=== PATIENT | male | born 1970 | race Caucasian/White ===

== ENCOUNTER 2018-03-01 09:40 | Emergency (ER) | payer SELFPAY ==
[2018-03-01] MEDS ORDERED: Ondansetron 4 MG/2 ML SDV IVPUSH ONE (09:50)
[2018-03-01] MEDS ORDERED: Sodium Chloride 0.9% 10 ML Syringe FLUSH PRN (09:50)
[2018-03-01] MEDS ORDERED: HYDROmorphone 0.5 MG/0.5 ML SYRINGE IVPUSH ONE (09:51)
[2018-03-01] MEDS ORDERED: Ketorolac 30 MG/ML SDV IVPUSH ONE (09:51)
--- NOTE | 2018-03-01 09:58 | EDM.PDOC ---
ED HPI GENERAL MEDICAL PROBLEM - General Chief Complaint: Genitourinary Problem Stated Complaint: [facility] Time Seen by Provider: 03/01/18 09:46 Source of Information: Reports: Patient, EMS History Limitations: Reports: No Limitations - History of Present Illness INITIAL COMMENTS - FREE TEXT/NARRATIVE: The patient presents with left flank and left lower abdominal pain. This all started this morning. He has nausea but no vomiting. He has no dysuria or hematuria. He has no fever, chills, cough, congestion, runny nose, chest pain, or shortness of breath. He has no history of kidney stones. Onset: Sudden Duration: Hour(s): Location: Reports: Abdomen (left), Back (Left) Quality: Reports: Sharp Severity: Severe Improves with: Reports: None Worsens with: Reports: None Associated Symptoms: Reports: Nausea/Vomiting. Denies: Chest Pain, Cough, Fever /Chills, Headaches, Shortness of Breath Left Lower Abdomen Pain Score (Numeric/FACES): 9 - Related Data Allergies Allergy/AdvReac Type Severity Reaction Status Date / Time No Known Allergies Allergy Verified 03/01/18 09:43 Home Meds: Home Meds Glimepiride 4 mg PO DAILY 03/01/18 [History] Levothyroxine 175 mcg PO DAILY 03/01/18 [History] atorvaSTATin [Lipitor] 20 mg PO DAILY 03/01/18 [History] metFORMIN HCl [Metformin HCl ER] 1,000 mg PO BID 03/01/18 [History] ED ROS GENERAL - Review of Systems Review Of Systems: See Below Constitutional: Reports: No Symptoms HEENT: Reports: No Symptoms Respiratory: Reports: No Symptoms Cardiovascular: Reports: No Symptoms Endocrine: Reports: No Symptoms GI/Abdominal: Reports: Abdominal Pain, Nausea, Vomiting : Reports: Flank Pain Musculoskeletal: Reports: No Symptoms Skin: Reports: No Symptoms ED EXAM, GI/ABD - Physical Exam Exam: See Below Exam Limited By: No Limitations General Appearance: Alert, No Apparent Distress Ears: Normal External Exam Nose: Normal Inspection Head: Atraumatic, Normocephalic Neck: Normal Inspection Respiratory/Chest: No Respiratory Distress, Lungs Clear, Normal Breath Sounds Cardiovascular: Regular Rate, Rhythm, No Edema, No Murmur GI/Abdominal Exam: Soft, Non-Tender, No Organomegaly, No Mass Back Exam: Normal Inspection Extremities: Normal Inspection Course - Vital Signs Last Recorded V/S: Last Vital Signs Temp 96.4 F 03/01/18 09:43 Pulse 92 03/01/18 09:43 Resp 20 03/01/18 09:43 BP 153/95 H 03/01/18 09:43 Pulse Ox 98 03/01/18 09:43 - Orders/Labs/Meds Orders: Active Orders 24 hr Category Date Time Status Peripheral IV Care [RC] . DIRECTED Care 03/01/18 09:50 Active UA W/MICROSCOPIC [URIN] Stat Lab 03/01/18 11:20 Ordered Sodium Chloride 0.9% [Normal Saline] 1,000 ml Med 03/01/18 10:00 Active IV ASDIRECTED Sodium Chloride 0.9% [Saline Flush] Med 03/01/18 09:50 Active 10 ml FLUSH ASDIRECTED PRN ED Antiemetic Medication Reflex [OM.PC] Stat Oth 03/01/18 09:50 Ordered Peripheral IV Insertion Adult [OM.PC] Stat Oth 03/01/18 09:50 Ordered Medication Orders Sodium Chloride (Normal Saline) 1,000 mls @ 125 mls/hr IV ASDIRECTED ARASH Last Admin: 03/01/18 10:08 Dose: 125 mls/hr Sodium Chloride (Saline Flush) 10 ml FLUSH ASDIRECTED PRN PRN Reason: Keep Vein Open Last Admin: 03/01/18 10:09 Dose: 10 ml Labs: Laboratory Tests 03/01/18 03/01/18 03/01/18 Range/Units 09:45 09:45 11:20 WBC 9.27 H (4.23-9.07) K/mm3 RBC 4.82 (4.63-6.08) M/mm3 Hgb 14.9 (13.7-17.5) gm/L Hct 42.8 (40.1-51.0) % MCV 88.8 (79.0-92.2) fl MCH 30.9 (25.7-32.2) pg MCHC 34.8 (32.2-35.5) g/dl RDW Std Deviation 39.7 (35.1-43.9) fL Plt Count 177 (163-337) K/mm3 MPV 9.0 L (9.4-12.3) fl Neut % (Auto) 77.2 H (34.0-67.9) % Lymph % (Auto) 13.2 L (21.8-53.1) % [place] % (Auto) 8.3 (5.3-12.2) % Eos % (Auto) 1.0 (0.8-7.0) Baso % (Auto) 0.2 (0.1-1.2) % Neut # (Auto) 7.16 H (1.78-5.38) K/mm3 Lymph # (Auto) 1.22 L (1.32-3.57) K/mm3 [place] # (Auto) 0.77 (0.30-0.82) K/mm3 Eos # (Auto) 0.09 (0.04-0.54) K/mm3 Baso # (Auto) 0.02 (0.01-0.08) K/mm3 Sodium 137 (136-145) mEq/L Potassium 4.0 (3.5-5.1) mEq/L Chloride 101 (98-107) mEq/L Carbon Dioxide 22 (21-32) mEq/L Anion Gap 18.0 H (5-15) BUN 13 (7-18) mg/dL Creatinine 1.4 H (0.7-1.3) mg/dL Est Cr Clr Drug Dosing 77.50 mL/min Estimated GFR (MDRD) 54 (>60) mL/min BUN/Creatinine Ratio 9.3 L (14-18) Glucose 259 H (74-106) mg/dL Calcium 9.3 (8.5-10.1) mg/dL Total Bilirubin 0.9 (0.2-1.0) mg/dL AST 45 H (15-37) U/L ALT 67 H (16-63) U/L Alkaline Phosphatase 115 (46-116) U/L Total Protein 7.7 (6.4-8.2) g/dl Albumin 4.2 (3.4-5.0) g/dl Globulin 3.5 gm/dL Albumin/Globulin Ratio 1.2 (1-2) Lipase 133 (73-393) U/L Urine Color Yellow (Yellow) Urine Appearance Clear (Clear) Urine pH 6.0 (5.0-8.0) Ur Specific Deal 1.020 (1.005-1.030) Urine Protein 1+ H (Negative) Urine Glucose (UA) Trace H (Negative) Urine Ketones Negative (Negative) Urine Occult Blood 3+ H (Negative) Urine Nitrite Negative (Negative) Urine Bilirubin Negative (Negative) Urine Urobilinogen 0.2 (0.2-1.0) Ur Leukocyte Esterase Negative (Negative) Urine RBC 20-30 H (0-5) /hpf Urine WBC 0-5 (0-5) /hpf Ur Epithelial Cells 0-5 (0-5) /hpf Urine Bacteria Few (FEW) /hpf Urine Mucus Moderate H (FEW) /hpf Meds: Medications Generic Name Dose Route Start Last Admin Trade Name Freq PRN Reason Stop Dose Admin Sodium Chloride 1,000 mls @ 125 mls/hr 03/01/18 10:00 03/01/18 10:08 Normal Saline IV 125 mls/hr ASDIRECTED ARASH Administration Sodium Chloride 10 ml 03/01/18 09:50 03/01/18 10:09 Saline Flush FLUSH 10 ml ASDIRECTED PRN Administration Keep Vein Open Discontinued Medications Generic Name Dose Route Start Last Admin Trade Name Freq PRN Reason Stop Dose Admin Hydromorphone HCl 0.5 mg 03/01/18 09:51 03/01/18 10:06 Dilaudid IVPUSH 03/01/18 09:52 0.5 mg ONETIME ONE Administration Ketorolac Tromethamine 30 mg 03/01/18 09:51 03/01/18 10:07 Toradol IVPUSH 03/01/18 09:52 30 mg ONETIME ONE Administration Ondansetron HCl 4 mg 03/01/18 09:50 03/01/18 10:06 Zofran IVPUSH 03/01/18 09:51 4 mg ONETIME ONE Administration - Re-Assessments/Exams Free Text/Narrative Re-Assessment/Exam: 03/01/18 12:10 I ordered an IV NS at 125mL/hr, zofran 4mg IV, dilaudid 0.5mg IV, toradol 30mg IV, labs, UA and a CT of his abdomen and pelvis without contrast to look for a stone. 03/01/18 12:12 His WBC was elevated at 9.27. His anion gap was elevated at 18. His creatinine is elevated at 1.4. His glucose was elevated at 259. His AST was elevated at 45. His ALT was elevated at 67. His UA shows blood. His CT shows left ureter is mildly dilated. Inflammatory change is seen around the proximal left ureter. There are no abnormal calcifications seen within the left ureter or within the bladder. Please correlate if patient's symptoms have improved as findings are suspicious for previous obstructing stone which is no longer present and may have passed. Fatty infiltration within the liver and small hiatal hernia. Mild splenomegaly. No other acute abnormality is seen on noncontrast CT study of the abdomen and pelvis. He feels much better. It appears he had a stone and passed it. Departure - Departure Time of Disposition: 12:20 Disposition: Home, Self-Care 01 Condition: Good Clinical Impression: Kidney stone, Ureteral colic, Ureteral calculus, left - Discharge Information Forms: ED Department Discharge Additional Instructions: Take motrin or aleve for any pain. Follow up with your doctor or a urologist when you get home. Drink plenty of water. Please return if you are worse. - My Orders Last 24 Hours: My Active Orders 03/01/18 09:50 Peripheral IV Care [RC] . DIRECTED Sodium Chloride 0.9% [Saline Flush] 10 ml FLUSH ASDIRECTED PRN ED Antiemetic Medication Reflex [OM.PC] Stat Peripheral IV Insertion Adult [OM.PC] Stat 03/01/18 10:00 Sodium Chloride 0.9% [Normal Saline] 1,000 ml IV ASDIRECTED 03/01/18 11:20 UA W/MICROSCOPIC [URIN] Stat - Assessment/Plan Last 24 Hours: My Active Orders 03/01/18 09:50 Peripheral IV Care [RC] . DIRECTED Sodium Chloride 0.9% [Saline Flush] 10 ml FLUSH ASDIRECTED PRN ED Antiemetic Medication Reflex [OM.PC] Stat Peripheral IV Insertion Adult [OM.PC] Stat 03/01/18 10:00 Sodium Chloride 0.9% [Normal Saline] 1,000 ml IV ASDIRECTED 03/01/18 11:20 UA W/MICROSCOPIC [URIN] Stat
[2018-03-01] MEDS ORDERED: Sodium Chloride 0.9% 1,000 ML IV SCH (10:00)
--- NOTE | 2018-03-01 10:20 | CT ---
CT abdomen and pelvis Technique: Multiple axial sections were obtained from above the dome of the diaphragm inferiorly through the pubic symphysis. Intravenous and oral contrast not utilized. Study has been performed as a ureteral stone protocol. Comparison: No prior CT exam. Findings: Multiple small nonobstructing calculi are seen within both kidneys. Left sided ureter is mildly dilated. Slight inflammatory change is seen around the proximal left ureter. No abnormal calcifications are seen along the course of the left ureter. No bladder calculi are seen. Right ureter shows no dilatation or abnormal calcifications. Visualized lung bases shows nothing acute. Liver shows fatty infiltration without focal abnormality. Spleen appears slightly enlarged at 14.5 cm in length. Small hiatal hernia is noted. Adrenal glands show no nodule. Pancreas is within normal limits. Gallbladder contains no calcified gallstones. Aorta shows no aneurysmal dilatation. No retroperitoneal adenopathy or mesenteric abnormalities are seen. No pelvic mass or adenopathy is seen. No free fluid is seen. Bone window settings were reviewed which shows mild scattered degenerative change within the spine. Impression: 1. Left ureter is mildly dilated. Inflammatory change is seen around the proximal left ureter. There are no abnormal calcifications seen within the left ureter or within the bladder. Please correlate if patient's symptoms have improved as findings are suspicious for previous obstructing stone which is no longer present and may have passed. 2. Fatty infiltration within the liver and small hiatal hernia. Mild splenomegaly. 3. No other acute abnormality is seen on noncontrast CT study of the abdomen and pelvis. Diagnostic code #3
== END 2018-03-01 12:35 | disposition home or self-care (01) ==
LOC: JD.ED 09:40
DX: N20.2 Calculus of kidney with calculus of ureter (principal); Z79.899 Other long term (current) drug therapy
CPT/HCPCS: 36415; 74176; 80053; 81001; 83690; 85025; 96361; 96374; 96375; 99284; J1170; J1885; J2405; J7040; J7050